=== PATIENT | female | born 1980 | race Caucasian/White ===

== ENCOUNTER 2021-09-15 16:48 | Emergency (ER) | payer SELFPAY ==
[~2021-09-15] VITALS: Ht 165.1 cm; Wt 61.0 kg
[2021-09-15] MEDS ORDERED: LORAZEPAM 2MG/ML CPJ IM ONE (17:15)
[2021-09-15] MEDS ORDERED: HALOPERIDOL LACTATE 5MG/ML VIAL IM ONE (17:15)
[2021-09-15] MEDS ORDERED: OLANZAPINE 10 MG/VIAL IM STA (17:29)
[2021-09-15 17:41] LABS: BASOPHILS % 0.3 % (0.0-2.0); EOSINOPHILS % 1.1 % (0.0-5.0); HEMATOCRIT. 38.9 % (36.0-48.0); HEMOGLOBIN. 12.9 g/dL (12.0-16.0); LYMPHOCYTES % 25.5 % (20.0-50.0); MEAN CORPUSCULAR HEMOGLOBIN 29.5 pg (28.0-32.0); MEAN CORPUSCULAR VOLUME 88.9 fL (81.0-99.0); MEAN PLATELET VOLUME 7.7 fl (7.4-10.4); MONOCYTES % 12.8 % (2.0-8.0); NEUTROPHILS % 60.3 % (40.0-76.0); PLATELET 300 x1000/uL (130-400); RED BLOOD CELL COUNT 4.37 mill/uL (4.2-5.4); RED CELL DISTRIBUTION WIDTH 13.7 % (11.6-14.6)
[2021-09-15 18:01] LABS: CHLORIDE 111 mEq/L (98-107)
[2021-09-15 18:02] LABS: HCG SCREEN NEGATIVE
[2021-09-15 18:10] LABS: ETHANOL BLOOD < 10 mg/dL
[2021-09-15 19:04] LABS: CLARITY URINE CLOUDY (CLEAR); COLOR URINE YELLOW (YELLOW); KETONES URINE NEGATIVE (NEGATIVE); LEUKOCYTE ESTERASE URINE 3+ (NEGATIVE); NITRITE URINE NEGATIVE (NEGATIVE); OCCULT BLOOD URINE NEGATIVE (NEGATIVE); PROTEIN URINE 1+ (NEGATIVE); SPECIFIC GRAVITY URINE 1.024 (1.005-1.030)
[2021-09-15 19:15] LABS: *BARBITURATES SCREEN URINE NEGATIVE (NEGATIVE); *BENZODIAZEPINES SCREEN URINE NEGATIVE (NEGATIVE); METHADONE URINE SCREEN NEGATIVE (NEGATIVE); OPIATES URINE SCREEN NEGATIVE (NEGATIVE)
[2021-09-15 19:18] LABS: *AMPHETAMINES SCREEN URINE PRESUMTIVE POSITIVE (NEGATIVE); *COCAINE SCREEN URINE PRESUMTIVE POSITIVE (NEGATIVE); CANNABINOID URINE SCREEN PRESUMTIVE POSITIVE (NEGATIVE); PHENCYCLIDINE URINE SCREEN PRESUMTIVE POSITIVE (NEGATIVE)
[2021-09-15] MEDS ORDERED: CEFTRIAXONE 2 G PREMIX 50 ML IV ONE (22:00)
[2021-09-15] MEDS ORDERED: NITR-87 MT (22:05)
[2021-09-15] MEDS ORDERED: CEFTRIAXONE 2 G in DEXTROSE 5% WATER 50 ML IV SCH (22:15)
[2021-09-16 05:00] VITALS: BP 127/76
== END 2021-09-16 15:28 | disposition home or self-care (01) ==
LOC: ER 16:48
DX: R46.2 Strange and inexplicable behavior (principal); N39.0 Urinary tract infection, site not specified; Z20.822 Contact with and (suspected) exposure to COVID-19
CPT/HCPCS: 36415; 80053; 80305; 80307; 80320; 80329; 81003; 84703; 85025; 96365; 96372; 99291; C9803; J0696; J1630; J2060; J3490; J7060; U0003; U0005; G0480